=== PATIENT | female | born 1945 | race American Indian/Alaskan Native ===

== ENCOUNTER 2017-09-30 18:40 | Emergency (ER) | payer MEDICARE ==
[2017-09-30 18:51] VITALS: BP 189/82
--- NOTE | 2017-09-30 20:18 | XRay Report ---
FINAL REPORT EXAM: XR KNEE 3V RT HISTORY: fall, right knee injury TECHNIQUE: AP, oblique, and lateral views of the right knee PRIORS: None. FINDINGS: No acute fracture or dislocation is seen. The soft tissues are unremarkable with no evidence for suprapatellar joint effusion. There is a serpiginous sclerotic focus in the distal femoral shaft, likely an incidental bone infarct. The bony mineralization is otherwise normal. There is moderate narrowing of the lateral joint compartment. This is associated with a valgus alignment of the knee. Large spurs off the tibial spines and lateral tibial plateau are noted. Moderate patellofemoral joint space narrowing is seen with spurring off posterior patella. IMPRESSION: No acute bony abnormality of the right knee. Patellofemoral and lateral joint compartment narrowing related to osteoarthritis. Valgus alignment of the knee is seen.
--- NOTE | 2017-09-30 22:13 | Emergency Department Report ---
ED Lower Extremity HPI - General Chief Complaint: Fall Stated Complaint: KNEE PAIN Time Seen by Provider: 09/30/17 22:08 Source: patient Mode of arrival: Ambulatory Limitations: No Limitations - History of Present Illness Initial Comments: This is a 71 y.o. female presents with pain to right knee from fall. Patient reports falling as she walked down son driveway yesterday. States there was some ice but she thought she could clear it. She is visiting here from [place] and wanted to know if she could get a cane to help walk. She has night tried taking anything OTC for pain. She used ice yesterday after she fell which kept the swelling down. Denies numbness, deformity, or tingling. MD Complaint: knee injury (right knee), fall -: days(s) (1) Injury: Knee: Right (swollen and painfull from fall) Type of Injury: unknown (unsure which direction her leg turned) Place: home (son home, pt is visiting son from [place]) Severity: moderate Severity scale (0 -10): 8 Improves With: cold therapy Worsens With: weight bearing, movement Context: fall Associated Symptoms: swelling, able to partially bear weight Treatments Prior to Arrival: cold therapy - Related Data Previous Rx's Medication Instructions Recorded Last Taken Type Cyclobenzaprine HCl [Flexeril 5 MG 5 mg PO TID #20 tab 09/30/17 Unknown Rx TAB] Ibuprofen 800 mg PO Q6H PRN #30 tablet 09/30/17 Unknown Rx Allergies Allergy/AdvReac Type Severity Reaction Status Date / Time atorvastatin [From Lipitor] Allergy Rash Verified 09/30/17 18:47 rosuvastatin [From Crestor] Allergy Rash Verified 09/30/17 18:47 ED Review of Systems ROS: Stated complaint: KNEE PAIN Other details as noted in HPI Constitutional: denies: chills, fever Respiratory: denies: cough, shortness of breath, wheezing Cardiovascular: denies: chest pain, palpitations Gastrointestinal: denies: abdominal pain, nausea, diarrhea Musculoskeletal: joint swelling (right knee), arthralgia (right knee) Skin: denies: rash, lesions Neurological: denies: headache, weakness, paresthesias ED Past Medical Hx - Past Medical History Previous Medical History?: Yes Hx Hypertension: Yes Hx Arthritis: Yes Additional medical history: Gastric ulcers, High cholesterol - Surgical History Past Surgical History?: Yes Additional Surgical History: Back surgery - Social History Smoking Status: Former Smoker Substance Use Type: Prescribed - Medications Home Medications: Home Medications Medication Instructions Recorded Confirmed Last Taken Type Cyclobenzaprine HCl [Flexeril 5 MG 5 mg PO TID #20 tab 09/30/17 Unknown Rx TAB] Ibuprofen 800 mg PO Q6H PRN #30 tablet 09/30/17 Unknown Rx ED Physical Exam - General Limitations: No Limitations General appearance: alert, in no apparent distress - Respiratory Respiratory exam: Present: normal lung sounds bilaterally. Absent: respiratory distress - Cardiovascular Cardiovascular Exam: Present: regular rate, normal rhythm. Absent: systolic murmur, diastolic murmur, rubs, gallop - GI/Abdominal GI/Abdominal exam: Present: soft, normal bowel sounds - Expanded Lower Extremity Exam Right Hip exam: Present: normal inspection, full ROM Upper Leg exam: Present: normal inspection, full ROM Knee exam: Present: full ROM, tenderness, swelling, pain w/ pronation/supination , pain/laxity with valgus, full knee extension. Absent: abrasion, laceration, ecchymosis, deformity, crepidus, dislocation, erythema, effusion, posterior draw sign, pain/laxity with varus Lower Leg exam: Present: normal inspection, full ROM Ankle exam: Present: normal inspection, full ROM Foot/Toe exam: Present: normal inspection, full ROM Neuro vascular tendon exam: Present: no vascular compromise Gait: Positive: observed and limited by pain - Neurological Exam Neurological exam: Present: alert, oriented X3 - Skin Skin exam: Present: warm, dry, intact, normal color. Absent: rash ED Course Vital Signs 09/30/17 09/30/17 18:47 23:49 Temperature 98.4 F Pulse Rate 94 H 88 Respiratory 16 20 Rate Blood Pressure 189/82 O2 Sat by Pulse 98 98 Oximetry ED Lower Extremity MDM - Radiology Data Radiology results: image reviewed X-ray right knee IMPRESSION: No acute bony abnormality of the right knee. Patellofemoral and lateral joint compartment narrowing related to osteoarthritis. Valgus alignment of the knee is seen. - Medical Decision Making This is a 71 y.o. female presents with pain to right knee from falling yesterday. She is visiting son from [place] and fell walking down his driveway on ice. Physical assessment cc X-ray right knee IMPRESSION: No acute bony abnormality of the right knee. Patellofemoral and lateral joint compartment narrowing related to osteoarthritis. Valgus alignment of the knee is seen. Ordered knee immobilizer. Discharged home with ibuprofen, cyclobenzaprine, and order for cane. Follow up with PCP. Discussed when to return to ER. Critical care attestation.: If time is entered above; I have spent that time in minutes in the direct care of this critically ill patient, excluding procedure time. ED Disposition Clinical Impression: Knee strain Qualifiers: Encounter type: initial encounter Laterality: right Qualified Code(s): S86.911A - Strain of unspecified muscle(s) and tendon(s) at lower leg level, right leg, initial encounter Right knee pain Qualifiers: Chronicity: acute Qualified Code(s): M25.561 - Pain in right knee Disposition: TO HOME OR SELFCARE Is pt being admited?: No Does the pt Need Aspirin: No Condition: Stable Instructions: Muscle Strain (ED), Knee Pain (ED), Knee Immobilizer (ED) Additional Instructions: Use heat or ice to control swelling. Follow up with primary care provider if symptoms don't improve in 1 week. Return to ER if swelling or pain is not controlled, fever, or unable to bear weight to affected area. Prescriptions: Cyclobenzaprine HCl [Flexeril 5 MG TAB] 5 mg PO TID #20 tab Ibuprofen 800 mg PO Q6H PRN #30 tablet PRN Reason: Pain Referrals: [facility] [Outside] - 3-5 Days [facility] [Outside] - 3-5 Days [facility] [Outside] - 3-5 Days Time of Disposition: 23:10 Print Language: TELUGU
== END 2017-09-30 23:49 | disposition home or self-care (01) ==
LOC: ED 18:40
DX: S86.811A Strain of other muscle(s) and tendon(s) at lower leg level, right leg, initial encounter (principal); I10 Essential (primary) hypertension; M19.90 Unspecified osteoarthritis, unspecified site; E78.00 Pure hypercholesterolemia, unspecified; Z87.891 Personal history of nicotine dependence; Z88.8 Allergy status to other drugs, medicaments and biological substances; W17.89XA Other fall from one level to another, initial encounter; Y93.89 Activity, other specified; Y92.89 Other specified places as the place of occurrence of the external cause; Y99.8 Other external cause status

== ENCOUNTER 2019-03-26 12:26 | Emergency (ER) | payer MEDICARE ==
[2019-03-26 13:51] VITALS: BP 136/72
--- NOTE | 2019-03-26 14:33 | Emergency Department Report ---
ED General Adult HPI - General Chief complaint: Weakness Stated complaint: N/V X3DAYS Time Seen by Provider: 03/26/19 13:47 Source: patient, EMS Mode of arrival: Stretcher Limitations: No Limitations - History of Present Illness Initial comments: 73-year-old female who probably suffers from some degree of dementia. She now states he has not been nauseated or vomiting. However she was given Zofran by paramedics for complaint of nausea. Patient states that she is unable to tolerate her green pill which is doxycycline. She was also placed on Bactrim by her infectious disease doctor. She states that she is having difficulty eating due to the antibiotics upsetting her stomach but does not complain of diarrhea. I presume that she has MRSA from cultures on to leg ulcers. The patient has been going to the wound care clinic for treatment thereof. She states that she has been weak over the last few days. She has had chills. She was sweating l ast night but did not take her temperature. She states that she feels sick. She denies any swelling or pain of her legs more than usual. Patient states that she had a knee replacement. She states that she did have a bone infection and removal of hardware. However, I do not know how reliable thi s information is. - Related Data Previous Rx's Medication Instructions Recorded Last Taken Type Cyclobenzaprine HCl [Flexeril 5 MG 5 mg PO TID #20 tab 09/30/17 Unknown Rx TAB] Ibuprofen 800 mg PO Q6H PRN #30 tablet 09/30/17 Unknown Rx Ondansetron [Zofran Odt] 4 mg PO Q6H PRN #7 tab.rapdis 03/26/19 Unknown Rx Allergies Allergy/AdvReac Type Severity Reaction Status Date / Time atorvastatin [From Lipitor] Allergy Rash Verified 03/26/19 13:44 rosuvastatin [From Crestor] Allergy Rash Verified 03/26/19 13:44 ED Review of Systems ROS: Stated complaint: N/V X3DAYS Other details as noted in HPI Constitutional: weakness. denies: chills, fever Eyes: denies: eye pain, eye discharge, vision change ENT: denies: ear pain, throat pain Respiratory: denies: cough, shortness of breath, wheezing Cardiovascular: denies: chest pain, palpitations Endocrine: no symptoms reported Gastrointestinal: nausea. denies: abdominal pain, vomiting, diarrhea Genitourinary: denies: urgency, dysuria, discharge Musculoskeletal: denies: back pain, joint swelling, arthralgia Skin: denies: rash, lesions Neurological: denies: headache, weakness, paresthesias Psychiatric: denies: anxiety, depression Hematological/Lymphatic: denies: easy bleeding, easy bruising ED Past Medical Hx - Past Medical History Hx Hypertension: Yes Hx Arthritis: Yes Additional medical history: Gastric ulcers, High cholesterol - Surgical History Additional Surgical History: Back surgery - Social History Smoking Status: Current Every Day Smoker Substance Use Type: None - Medications Home Medications: Home Medications Medication Instructions Recorded Confirmed Last Taken Type Cyclobenzaprine HCl [Flexeril 5 MG 5 mg PO TID #20 tab 09/30/17 Unknown Rx TAB] Ibuprofen 800 mg PO Q6H PRN #30 tablet 09/30/17 Unknown Rx Ondansetron [Zofran Odt] 4 mg PO Q6H PRN #7 tab.rapdis 03/26/19 Unknown Rx ED Physical Exam - General Limitations: No Limitations General appearance: alert, in no apparent distress - Head Head exam: Present: atraumatic, normocephalic - Eye Eye exam: Present: normal appearance - ENT ENT exam: Present: mucous membranes moist - Neck Neck exam: Present: normal inspection - Respiratory Respiratory exam: Present: normal lung sounds bilaterally. Absent: respiratory distress - Cardiovascular Cardiovascular Exam: Present: regular rate, normal rhythm. Absent: systolic murmur, diastolic murmur, rubs, gallop - GI/Abdominal GI/Abdominal exam: Present: soft, normal bowel sounds. Absent: distended, tenderness, guarding, rebound - Extremities Exam Extremities exam: Present: normal capillary refill, other (punched out circumferential approximately 1-2 cm leg ulcer is pretibial and distal leg. Really without signs of odor for infection or exudate.). Absent: normal inspec tion (old knee replacement scar), pedal edema, joint swelling, calf tenderness - Back Exam Back exam: Present: normal inspection - Neurological Exam Neurological exam: Present: alert, oriented X3, CN II-XII intact. Absent: motor sensory deficit (neurovascular exam intact) - Psychiatric Psychiatric exam: Present: normal affect, normal mood - Skin Skin exam: Present: warm, dry, intact, normal color. Absent: rash ED Course Vital Signs 03/26/19 13:44 Temperature 98.2 F Pulse Rate 68 Respiratory 16 Rate Blood Pressure 136/72 O2 Sat by Pulse 97 Oximetry ED Medical Decision Making - Lab Data Result diagrams: 03/26/19 14:42 03/26/19 14:35 Laboratory Results - last 24 hr 03/26/19 03/26/19 03/26/19 14:12 14:35 14:35 WBC RBC Hgb Hct MCV MCH MCHC RDW Plt Count Lymph % (Auto) [place] % (Auto) Eos % (Auto) Baso % (Auto) Lymph # [place] # Eos # Baso # Seg Neutrophils % Seg Neutrophils # PT 14.3 INR 1.14 H Sodium 143 Potassium 4.2 Chloride 107.5 H Carbon Dioxide 24 Anion Gap 16 BUN 18 H Creatinine 1.1 Estimated GFR 59 BUN/Creatinine Ratio 16 Glucose 80 Lactic Acid Calcium 10.2 Total Bilirubin 0.20 Direct Bilirubin < 0.2 Indirect Bilirubin 0.0 AST 15 ALT 9 Alkaline Phosphatase 75 Troponin T Total Protein 6.8 Albumin 3.7 L Albumin/Globulin Ratio 1.2 Lipase 18 Urine Color Yellow Urine Turbidity Clear Urine pH 5.0 Ur Specific [place] 1.023 Urine Protein <15 mg/dl Urine Glucose (UA) Neg Urine Ketones Neg Urine Blood Neg Urine Nitrite Neg Urine Bilirubin Neg Urine Urobilinogen < 2.0 Ur Leukocyte Esterase Neg Urine WBC (Auto) < 1.0 Urine RBC (Auto) 1.0 U Epithel Cells (Auto) 3.0 Urine Mucus Few 03/26/19 03/26/19 03/26/19 14:35 14:35 14:42 WBC 5.9 RBC 3.78 Hgb 10.8 Hct 32.0 MCV 85 MCH 29 MCHC 34 RDW 15.3 H Plt Count 212 Lymph % (Auto) 37.1 H [place] % (Auto) 9.4 H Eos % (Auto) 2.2 Baso % (Auto) 0.3 Lymph # 2.2 [place] # 0.6 Eos # 0.1 Baso # 0.0 Seg Neutrophils % 51.0 Seg Neutrophils # 3.0 PT INR Sodium Potassium Chloride Carbon Dioxide Anion Gap BUN Creatinine Estimated GFR BUN/Creatinine Ratio Glucose Lactic Acid 1.10 Calcium Total Bilirubin Direct Bilirubin Indirect Bilirubin AST ALT Alkaline Phosphatase Troponin T < 0.010 Total Protein Albumin Albumin/Globulin Ratio Lipase Urine Color Urine Turbidity Urine pH Ur Specific [place] Urine Protein Urine Glucose (UA) Urine Ketones Urine Blood Urine Nitrite Urine Bilirubin Urine Urobilinogen Ur Leukocyte Esterase Urine WBC (Auto) Urine RBC (Auto) U Epithel Cells (Auto) Urine Mucus - EKG Data -: EKG Interpreted by Me EKG shows normal: sinus rhythm, axis, intervals, QRS complexes, ST-T waves Rate: normal - EKG Data Interpretation: no acute changes, other (occasional atrial ectopy) - Radiology Data Radiology results: report reviewed (no acute process) Critical care attestation.: If time is entered above; I have spent that time in minutes in the direct care of this critically ill patient, excluding procedure time. 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 Ewing concerning her antibiotic. I think it probably hold off on taking it for now. Follow-up with wound care clinic. Rx for nausea as needed. Return any acute change or problem. Prescriptions: Ondansetron [Zofran Odt] 4 mg PO Q6H PRN #7 tab.rapdis PRN Reason: Nausea Referrals: JOSE PATTEN MD [Primary Care Provider] - 3-5 Days MATTHEW SERNA MD [Referring] - 2-3 Days wound care, clinic [Other] - 2-3 Days Time of Disposition: 15:31
[2019-03-26 14:35] LABS: Bilirubin,Urine NEG (Negative); Blood,Urine NEG (Negative); Color,Urine Yellow (Yellow); Mucus,Urine FEW /HPF; Protein,Urine <15 mg/dL mg/dL (Negative); Urobilinogen,Urine < 2.0 mg/dL (<2.0); WBC,Urine < 1.0 /HPF (0.0-6.0)
[2019-03-26 14:55] LABS: Basophils % (Auto) 0.3 % (0.0-1.8); Eosinophils # (Auto) 0.1 K/mm3 (0.0-0.4); Eosinophils % (Auto) 2.2 % (0.0-4.3); Hemoglobin 10.8 gm/dl (10.1-14.3); Lymphocytes # (Auto) 2.2 K/mm3 (1.2-5.4); Lymphocytes % (Auto) 37.1 % (13.4-35.0); Mean Corpuscular HGB Conc 34 % (30-34); Mean Corpuscular Volume 85 fl (79-97); Monocytes # (Auto) 0.6 K/mm3 (0.0-0.8); Monocytes % (Auto) 9.4 % (0.0-7.3); Platelet Count 212 K/mm3 (140-440); Red Blood Count 3.78 M/mm3 (3.65-5.03); Red Cell Distribution Width 15.3 % (13.2-15.2)
--- NOTE | 2019-03-26 14:56 | XRay Report ---
RIGHT TIBIA FIBULA HISTORY: Pain. COMPARISON: None. TECHNIQUE: 2 views of the right tibia and fibula were obtained. FINDINGS: Bones: No fracture or dislocation. No bone lesion. Joint spaces: Maintained. Soft tissues: Normal. Additional findings: Total knee joint replacement with normal appearance of the prosthesis. IMPRESSION: 1. Negative study status post total knee replacement. 2. No signs of osteomyelitis. Signer Name: Milton Clark MD Signed: 03/26/2019 2:52 PM Workstation Name: [id number]
[2019-03-26 15:06] LABS: INR 1.14 (0.87-1.13)
[2019-03-26 15:15] LABS: Alanine Aminotransferase 9 units/L (7-56); Albumin 3.7 g/dL (3.9-5); BUN/Creatinine Ratio 16; Blood Urea Nitrogen 18 mg/dL (7-17); Calcium 10.2 mg/dL (8.4-10.2); Hemolysis Index 2
[2019-03-26 15:17] LABS: Bilirubin,Direct < 0.2 mg/dL (0-0.2)
== END 2019-03-26 17:00 | disposition home or self-care (01) ==
LOC: ED 12:26
DX: T36.4X5A Adverse effect of tetracyclines, initial encounter (principal); E11.622 Type 2 diabetes mellitus with other skin ulcer; L97.912 Non-pressure chronic ulcer of unspecified part of right lower leg with fat layer exposed; F03.90 Unspecified dementia, unspecified severity, without behavioral disturbance, psychotic disturbance, mood disturbance, and anxiety; Z88.8 Allergy status to other drugs, medicaments and biological substances; Z79.899 Other long term (current) drug therapy; Y92.89 Other specified places as the place of occurrence of the external cause
CPT/HCPCS: 36415; 80048; 80076; 81001; 82140; 82962; 83690; 84484; 85025; 85610; 87040; 93005; 93010

== ENCOUNTER 2019-09-16 11:21 | Outpatient (CLI) | payer MEDICARE ==
[2019-09-16 12:00] LABS: Hematocrit 40.9 % (30.3-42.9); Hemoglobin 13.4 gm/dl (10.1-14.3); Mean Corpuscular HGB Conc 33 % (30-34); Mean Corpuscular Volume 86 fl (79-97); Platelet Count 228 K/mm3 (140-440); Red Blood Count 4.75 M/mm3 (3.65-5.03); Red Cell Distribution Width 15.1 % (13.2-15.2)
[2019-09-16 12:21] LABS: Calcium 10.1 mg/dL (8.4-10.2)
[2019-09-16 13:17] LABS: Creatinine,Urine 165.7 mg/dL (0.1-20.0); Protein/Creatinine Ratio,Urine 0.19
--- NOTE | 2019-09-16 15:54 | Ultrasound Report ---
ULTRASOUND RENAL INDICATION / CLINICAL INFORMATION: [id number] KIDNEY DISEASE/R60.9EDEMAUNSPECIFIED/D64.9ANEMIA. COMPARISON: None available. FINDINGS: RIGHT KIDNEY: Length = 10.3 cm. [normal > 9 cm] - Parenchymal Thickness = 0.8 cm. [normal > 1.5 cm] - Echogenicity: Mildly increased. - Hydronephrosis: None. - Cyst or mass: No significant abnormality. - Stones: None seen. LEFT KIDNEY: Length = 9.4 cm. [normal > 9 cm] - Parenchymal Thickness = 0.8 cm. [normal > 1.5 cm] - Echogenicity: Mildly increased. - Hydronephrosis: None. - Cyst or mass: No significant abnormality. - Stones: None seen. URINARY BLADDER: Not identified. No fluid in the urinary bladder. FREE FLUID: None. ADDITIONAL FINDINGS: None. IMPRESSION: 1. Bilateral medical renal disease. 2. No hydronephrosis. Signer Name: Milton Clark MD Signed: 09/16/2019 3:50 PM Workstation Name: [id number]
[2019-09-18 11:42] LABS: Vitamin D, 25-OH, D2 <4 ng/mL
[2019-09-20 09:02] LABS: Albumin 3.9 g/dL (3.8-4.8); Gamma Globulin 1.2 g/dL (0.8-1.7)
== END 2019-09-16 11:22 | disposition home or self-care (01) ==
LOC: US 11:21
PROVIDERS: ATTEND Student in an Organized Health Care Education/Training Program
DX: D64.9 Anemia, unspecified (principal); R60.9 Edema, unspecified; R80.9 Proteinuria, unspecified; K21.9 Gastro-esophageal reflux disease without esophagitis; N28.89 Other specified disorders of kidney and ureter
CPT/HCPCS: 36415; 76770; 80048; 82306; 82570; 83970; 84156; 84165; 85027

== ENCOUNTER 2019-09-24 13:19 | Emergency (ER) | payer MEDICARE ==
[2019-09-24 13:41] VITALS: BP 170/83
--- NOTE | 2019-09-24 13:41 | Event Note ---
ED Screening Note ED Screening Note: states she has a frontal headache earlier today states she also has left CP tightness and squeezing no N/V/D no fever no SOB no leg swelling no vision changes no numbness no unilateral weakness PMHx DM, HTN, HLD, afib no blood thinner no TN This initial assessment/diagnostic orders/clinical plan/treatment(s) is/are subject to change based on patients health status, clinical progression and re- assessment by fellow clinical providers in the ED. Further treatment and workup at subsequent clinical providers discretion. Patient/guardian urged not to elope from the ED as their condition may be serious if not clinically assessed and managed. Initial orders include: CP protocol, CT head
--- NOTE | 2019-09-24 14:36 | Cat Scan Report ---
CT head without contrast INDICATION : headache. TECHNIQUE: Axial imaging performed from the skull apex through the skull base without the use of con trast. All CT scans at this location are performed using CT dose reduction for ALARA by means of aut omated exposure control. COMPARISON: None FINDINGS: Parenchyma: No acute intracranial hemorrhage or parenchymal abnormality. There is an area of well-de fined encephalomalacia in the right parietal lobe near the vertex suggesting a subacute/chronic infar ct. Ventricles: Ventricles are normal in size and appear symmetric. Soft tissues: Soft tissues including the orbits appear normal. Bones: No acute osseous abnormality. Sinuses: Sinuses and mastoid air cells are clear. IMPRESSION: No acute abnormality. Signer Name: Lewis Mancera MD Signed: 09/24/2019 2:32 PM Workstation Name: [id number]
[2019-09-24 14:38] LABS: Bacteria,Urine 1+ /HPF (Negative); Bilirubin,Urine NEG (Negative); Blood,Urine NEG (Negative); Color,Urine Yellow (Yellow); Mucus,Urine FEW /HPF; Protein,Urine <15 mg/dL mg/dL (Negative); Urobilinogen,Urine < 2.0 mg/dL (<2.0)
--- NOTE | 2019-09-24 14:56 | XRay Report ---
CHEST 2 VIEWS INDICATION: Chest pain. COMPARISON: None FINDINGS: Support devices: None. Heart: Within normal limits. The aorta is mildly ectatic but well defined. Lungs/pleura: No acute air space or interstitial disease. No pneumothorax. Additional findings: Posterior fusion of the lumbar spine is partially imaged. IMPRESSION: No acute findings. Signer Name: Slick Husain Jr, MD Signed: 09/24/2019 2:52 PM Workstation Name: [id number]
[2019-09-24 15:10] LABS: Basophils # (Auto) 0.1 K/mm3 (0.0-0.1); Basophils % (Auto) 1.3 % (0.0-1.8); Eosinophils # (Auto) 0.1 K/mm3 (0.0-0.4); Hematocrit 39.5 % (30.3-42.9); Hemoglobin 13.2 gm/dl (10.1-14.3); Lymphocytes # (Auto) 2.2 K/mm3 (1.2-5.4); Lymphocytes % (Auto) 36.8 % (13.4-35.0); Mean Corpuscular HGB Conc 33 % (30-34); Mean Corpuscular Volume 86 fl (79-97); Monocytes # (Auto) 0.4 K/mm3 (0.0-0.8); Monocytes % (Auto) 7.3 % (0.0-7.3); Platelet Count 215 K/mm3 (140-440); Red Blood Count 4.58 M/mm3 (3.65-5.03); Red Cell Distribution Width 14.9 % (13.2-15.2)
[2019-09-24 15:19] LABS: INR 1.07 (0.87-1.13); Partial Thromboplastin Time 34.5 Sec. (24.2-36.6)
[2019-09-24 15:35] LABS: Alanine Aminotransferase 13 units/L (7-56); Albumin 3.8 g/dL (3.9-5); BUN/Creatinine Ratio 12; Blood Urea Nitrogen 14 mg/dL (7-17); Calcium 9.4 mg/dL (8.4-10.2); Hemolysis Index 16
== END 2019-09-24 20:10 | disposition left against medical advice (07) ==
LOC: ED 13:19
DX: R51 Headache (principal); R07.9 Chest pain, unspecified; Z53.21 Procedure and treatment not carried out due to patient leaving prior to being seen by health care provider
CPT/HCPCS: 36415; 70450; 71046; 80053; 81001; 84484; 85025; 85610; 85730; 93005; 93010

== ENCOUNTER 2020-11-06 06:57 | Emergency (ER) | payer MEDICARE ==
--- NOTE | 2020-11-06 08:04 | Emergency Department Report ---
ED Neck Pain/Injury HPI - General Stated Complaint: NECK PAIN Time Seen by Provider: 11/06/20 07:20 - History of Present Illness Initial Comments: 75-year-old female with right-sided neck and shoulder pain x4 days. Patient denies any fall or injury to the area. Patient states pain is located in the right lateral neck and radiates down into the right shoulder. Pain is worse with lifting of the right arm and rotating the neck rightward. Patient unable to fully lift right arm secondary to pain. She denies any associated numbness, weakness, fever, or headache. Patient has history of chronic back pain and states she took her prescribed oxycodone which does help somewhat. MD Complaint: neck pain -: days(s) (4) Radiation: right shoulder Severity: moderate Quality: aching Consistency: constant Improves With: immobilization Worsens With: movement of extremity, movement of neck Context: unknown Associated Symptoms: denies: headache, fever, numbness, tingling, weakness, difficulty walking, difficulty swallowing, nausea, vomiting Treatments Prior to Arrival: prescription pain med - Related Data Previous Rx's Medication Instructions Recorded Last Taken Type Ondansetron [Zofran Odt] 4 mg PO Q6H PRN #7 tab.rapdis 03/26/19 Unknown Rx Naproxen [Naprosyn] 500 mg PO BID #20 tablet 11/06/20 Unknown Rx methOCARBAMOL [Robaxin TAB] 500 mg PO Q8HR PRN #20 tablet 11/06/20 Unknown Rx Allergies Allergy/AdvReac Type Severity Reaction Status Date / Time atorvastatin [From Lipitor] Allergy Rash Verified 03/26/19 13:44 rosuvastatin [From Crestor] Allergy Rash Verified 03/26/19 13:44 ED Review of Systems ROS: Stated complaint: NECK PAIN Other details as noted in HPI Comment: All other systems reviewed and negative Constitutional: denies: chills, fever Musculoskeletal: as per HPI Neurological: denies: headache, weakness, numbness ED Past Medical Hx - Past Medical History Hx Hypertension: Yes Hx Arthritis: Yes Additional medical history: Gastric ulcers, High cholesterol - Surgical History Additional Surgical History: Back surgery - Social History Smoking Status: Current Every Day Smoker Substance Use Type: None - Medications Home Medications: Home Medications Medication Instructions Recorded Confirmed Last Taken Type Ondansetron [Zofran Odt] 4 mg PO Q6H PRN #7 tab.rapdis 03/26/19 11/06/20 Unknown Rx Naproxen [Naprosyn] 500 mg PO BID #20 tablet 11/06/20 Unknown Rx methOCARBAMOL [Robaxin TAB] 500 mg PO Q8HR PRN #20 tablet 11/06/20 Unknown Rx ED Physical Exam - General General appearance: alert, in no apparent distress - Head Head exam: Present: atraumatic, normocephalic - Eye Eye exam: Present: normal appearance, EOMI - ENT ENT exam: Present: mucous membranes moist - Neck Neck exam: Present: normal inspection, tenderness (Right lateral neck), other (Decreased range of motion with right rotation). Absent: meningismus - Respiratory Respiratory exam: Present: normal lung sounds bilaterally. Absent: respiratory distress - Cardiovascular Cardiovascular Exam: Present: regular rate, normal rhythm - GI/Abdominal GI/Abdominal exam: Present: soft. Absent: distended, tenderness - Extremities Exam Extremities exam: Present: tenderness (right shoulder), other (No swelling to the right arm). Absent: full ROM (Decreased range of motion with abduction of right arm secondary to shoulder pain), joint swelling - Neurological Exam Neurological exam: Present: alert, oriented X3. Absent: motor sensory deficit - Psychiatric Psychiatric exam: Present: normal affect, normal mood - Skin Skin exam: Present: warm, dry, intact, normal color ED Course Vital Signs 11/06/20 11/06/20 11/06/20 07:40 07:45 08:18 Temperature 99.1 F Pulse Rate 77 80 Respiratory 15 18 Rate Blood Pressure 182/81 Blood Pressure 182/81 [Left] O2 Sat by Pulse 98 96 Oximetry 11/06/20 11/06/20 11/06/20 08:30 08:32 09:00 Temperature Pulse Rate 74 73 Respiratory 14 14 21 Rate Blood Pressure 182/81 182/81 Blood Pressure [Left] O2 Sat by Pulse 98 98 Oximetry 11/06/20 09:39 Temperature Pulse Rate 78 Respiratory 17 Rate Blood Pressure Blood Pressure 178/78 [Left] O2 Sat by Pulse 96 Oximetry ED Medical Decision Making - Radiology Data Radiology results: report reviewed, image reviewed - Medical Decision Making 75-year-old female presents to ED with right neck and shoulder pain. Patient i has no neuro deficits on exam. Patient has history of chronic back pain. X-ray shows some degenerative disease in the C-spine, as well osteoarthritic changes in the right shoulder. Pain in the right arm could be radiculopathy versus arthritic pain. Patient is afebrile, no meningismus on exam. Will discharge at this time. Outpatient follow-up advised. Prescriptions given. Return precautions given. Critical care attestation.: If time is entered above; I have spent that time in minutes in the direct care of this critically ill patient, excluding procedure time. ED Disposition Clinical Impression: Degenerative disc disease, cervical, Osteoarthritis of right shoulder Disposition: TO HOME OR SELFCARE Is pt being admited?: No Condition: Stable Instructions: Osteoarthritis, Degenerative Disk Disease, Cervical Radiculopathy, [id number]-Oeds Prescriptions: Naproxen [Naprosyn] 500 mg PO BID #20 tablet methOCARBAMOL [Robaxin TAB] 500 mg PO Q8HR PRN #20 tablet PRN Reason: Muscle Spasm Referrals: MEJIA MONTEIRO MD [Staff Physician] - 3-5 Days JESSICA JAIN II, MD [Staff Physician] - 3-5 Days PRIMARY CAREMD [Primary Care Provider] - 3-5 Days Time of Disposition: 09:09
--- NOTE | 2020-11-06 08:59 | XRay Report ---
CERVICAL SPINE 3 VIEWS INDICATION: pain. COMPARISON: None. IMPRESSION: There is 3 mm anterolisthesis of C7 with respect to T1. The remaining cervical vertebra are normal in alignment. Moderate to severe degenerative disc disease with anterior bridging osteoph ytes is identified at C5-6 and C6-7. Mild degenerative changes are noted at the remaining levels. No acute osseous or soft tissue abnormality. RIGHT SHOULDER 3 VIEWS INDICATION: Right shoulder pain for 3 days. COMPARISON: None. IMPRESSION: No acute osseous or soft tissue abnormality. Moderate osteoarthritic changes are iden tified at the glenohumeral joint and to a lesser extent the AC joint. Multiple small subchondral cyst s are identified in the superior humeral head. 3 or 4 calcific foreign bodies measuring up to 1.1 cm are identified in the subscapular recess. A similar appearing calcified foreign body is identified in the inferior recess. Chondromatosis could be considered. Signer Name: Slick Husain Jr, MD Signed: 11/06/2020 8:54 AM Workstation Name: [id number]
[2020-11-06 09:40] VITALS: BP 178/78
== END 2020-11-06 09:40 | disposition home or self-care (01) ==
LOC: ED 06:57
DX: M50.322 Other cervical disc degeneration at C5-C6 level (principal); M50.323 Other cervical disc degeneration at C6-C7 level; M19.011 Primary osteoarthritis, right shoulder; I10 Essential (primary) hypertension; M19.91 Primary osteoarthritis, unspecified site; F17.200 Nicotine dependence, unspecified, uncomplicated; Z98.890 Other specified postprocedural states; Z79.899 Other long term (current) drug therapy; Z88.8 Allergy status to other drugs, medicaments and biological substances
CPT/HCPCS: 72040; 82962